=== PATIENT | female | born 1960 ===

== ENCOUNTER 2016-06-23 19:54 | Emergency (ER) | payer SELFPAY ==
[2016-06-23 20:16] VITALS: PULSE 72; TEMP 98.2; O2SAT 99
--- NOTE | 2016-06-23 20:52 | C.PDOC ---
History Of Present Illness A 56 year old female presents to the emergency room after presumedly swallowing a small fragment of broken glass yesterday in a vera colada drink. Patient reports irritation to the roof of the mouth. Patient has been able to drink or eat without any issues. Pt denies any foreign body sensation to throat, shortness of breath, vomiting blood, bloody stools, abdominal pain, difficulty swallowing, mouth swelling, or any other complaints. Time Seen by Provider: 06/23/16 20:24 Chief Complaint (Nursing): ENT Problem History Per: Patient History/Exam Limitations: None Onset/Duration Of Symptoms: Days (1) Current Symptoms Are (Timing): Still Present Quality (Mouth/Throat): Other (Swallowed glass). denies: Tenderness, Swelling, Redness, Drainage Symptoms Have Been: Continuous Severity: Mild Anticoagulant/Antiplatlet Use?: No Recent Aspirin Use: No Past Medical History Reviewed: Historical Data, Nursing Documentation, Vital Signs Vital Signs: Last Vital Signs Temp 98.2 F 06/23/16 20:12 Pulse 72 06/23/16 20:12 Resp 20 06/23/16 21:21 BP Pulse Ox 99 06/23/16 21:11 - Medical History PMH: Denies: Gall Bladder Disease, Kidney Stones, Chronic Kidney Disease Family History: States: Unknown Family Hx - Social History Hx Tobacco Use: No Hx Alcohol Use: No Hx Substance Use: No - Immunization History Hx Tetanus Toxoid Vaccination: No Hx Influenza Vaccination: No Hx Pneumococcal Vaccination: No Review Of Systems Except As Marked, All Systems Reviewed And Found Negative. Constitutional: Negative for: Fever, Chills ENT: Positive for: Other (Swallowed a small fragment of glass. Irritation to the roof of the mouth.). Negative for: Mouth Pain, Mouth Swelling, Throat Pain , Throat Swelling Respiratory: Negative for: Cough, Shortness of Breath Gastrointestinal: Negative for: Nausea, Vomiting, Abdominal Pain, Diarrhea, Hematochezia, Hematemesis, Rectal Pain Physical Exam - Physical Exam Appears: Well, Non-toxic, Other (Appears anxious) Skin: Normal Color, Warm, Dry, No Rash Head: Atraumatic, Normacephalic Eye(s): bilateral: Normal Inspection, PERRL Oral Mucosa: Moist, No Drooling, No Other (erythema or wounds to roof of the mouth ) Tongue: Normal Appearing, No Swelling, No Laceration Lips: Normal Appearing, No Swelling Throat: Normal, No Erythema, No Exudate, No Drooling, No Other (FB) Neck: Normal ROM, No Midline Cervical Tenderness, No Paracervical Tenderness, Supple Cardiovascular: Rhythm Regular Respiratory: Normal Breath Sounds, No Rales, No Rhonchi, No Wheezing Gastrointestinal/Abdominal: Soft, No Tenderness, No Guarding, No Rebound Extremity: Normal ROM, No Tenderness Neurological/Psych: Oriented x3, Normal Speech, Normal Cognition ED Course And Treatment ECG: Interpreted By Me ECG Rhythm: Sinus Rhythm ECG Interpretation: Normal Rate From EC O2 Sat by Pulse Oximetry: 99 Medical Decision Making Medical Decision Making: Impression: A 56 year old female who allegedly swallowed a small fragment of glass yesterday. Patient appears anxious on examination. Mouth, throat, and lungs were clear, abd nontender. ( Pt brought to ER a microscopic size piece of glass)- Progress Notes: Prior to discharge, patient complained of chest tightness. Patient denied shortness of breath, diaphoresis, or any other complaints. EKG was normal. Patient youth care specialist Tina translated in chinese and d/w patient her plan of care including risks and benefits. Pt feels reassured, now no longer anxious or with chest tightness. Pt does understand plan and rreturn precautions instructions and does agree with the plan. Patient was discharged home with instructions to follow up with PMD/clinic within 1-2 days. Disposition Counseled Patient/Family Regarding: Diagnosis, Need For Followup, Rx Given - Disposition Disposition: HOME/ ROUTINE Disposition Time: 21:06 Condition: STABLE Additional Instructions: Please follow up with your doctor or in clinic Return to ER if difficulty swallowing, difficulty breathing, chest and abdominal pain. vomiting blood. blood in stools or worse Instructions: Foreign Body Ingestion (ED) Print Language: MARTINIQUAIS - Clinical Impression Clinical Impression: H/O swallowed foreign body - Scribe Statement The provider has reviewed the documentation as recorded by the Tashaibani Martin All medical record entries made by the Tashaibani were at my direction and personally dictated by me. I have reviewed the chart and agree that the record accurately reflects my personal performance of the history, physical exam, medical decision making, and the department course for this patient. I have also personally directed, reviewed, and agree with the discharge instructions and disposition.
[2016-06-23 21:22] VITALS: RESP 20
== END 2016-06-23 21:21 | disposition home or self-care (01) ==
LOC: C.ER 19:54
DX: R09.89 Other specified symptoms and signs involving the circulatory and respiratory systems (principal)

== ENCOUNTER 2016-07-22 20:55 | Emergency (ER) | payer SELFPAY ==
[2016-07-22 21:33] VITALS: BP 165/89; PULSE 70; RESP 20; TEMP 98.5; O2SAT 97
--- NOTE | 2016-07-23 00:02 | C.PDOC ---
Time Seen by Provider: 07/22/16 22:33 Chief Complaint (Nursing): Headache Past Medical History Vital Signs: Last Vital Signs Temp 98.5 F 07/22/16 21:29 Pulse 70 07/22/16 21:29 Resp 20 07/22/16 23:18 BP 165/89 H 07/22/16 21:29 Pulse Ox 97 07/22/16 21:29 - Medical History PMH: Denies: Gall Bladder Disease, Kidney Stones, Chronic Kidney Disease Family History: States: Unknown Family Hx - Social History Hx Tobacco Use: No Hx Alcohol Use: No Hx Substance Use: No - Immunization History Hx Tetanus Toxoid Vaccination: No Hx Influenza Vaccination: No Hx Pneumococcal Vaccination: No ED Course And Treatment O2 Sat by Pulse Oximetry: 97 Disposition - Disposition Disposition: LEFT W/O BEING SEEN - ER ONLY Disposition Time: 00:01 Condition: UNKNOWN - Clinical Impression Clinical Impression: Patient left without being seen
== END 2016-07-22 23:18 | disposition left against medical advice (07) ==
LOC: C.ER 20:55
DX: R51 Headache (principal); Z02.9 Encounter for administrative examinations, unspecified

== ENCOUNTER 2017-07-10 07:25 | Emergency (ER) | payer OTHER ==
--- NOTE | 2017-07-10 08:30 | C.PDOC ---
History Of Present Illness 57-year-old female, presents to the emergency department with complaints of three-day duration of pain and swelling to the left side of her face. Patient has not taken any medication at home for symptoms. Denies nausea/vomiting, fever or any other associated symptoms. No other complaints at this time. Time Seen by Provider: 07/10/17 07:41 Chief Complaint (Nursing): Abnormal Skin Integrity History Per: Patient History/Exam Limitations: no limitations Past Medical History Reviewed: Historical Data, Nursing Documentation, Vital Signs Vital Signs: Last Vital Signs Temp 98.5 F 07/10/17 08:34 Pulse 66 07/10/17 08:34 Resp 18 07/10/17 08:34 BP 144/86 07/10/17 08:34 Pulse Ox 97 07/10/17 11:43 Family History: States: No Known Family Hx - Social History Hx Tobacco Use: No Hx Alcohol Use: No Hx Substance Use: No - Immunization History Hx Tetanus Toxoid Vaccination: No Hx Influenza Vaccination: No Hx Pneumococcal Vaccination: No Review Of Systems Constitutional: Negative for: Fever, Chills Eyes: Negative for: Pain ENT: Negative for: Ear Pain, Ear Discharge, Nose Congestion, Throat Pain, Throat Swelling Cardiovascular: Negative for: Chest Pain Respiratory: Negative for: Shortness of Breath Gastrointestinal: Negative for: Nausea, Vomiting Skin: Positive for: Rash Physical Exam - Physical Exam Skin: Warm, Dry, Other (left upper lip is swollen with erythema to cheek, (+) vesicles, ) Head: Atraumatic, Normacephalic, Other ((+) preauricular and submandibular lymphadenopathy) Eye(s): bilateral: Normal Inspection, PERRL, EOMI Ear(s): Bilateral: Normal Nose: Normal Oral Mucosa: Moist Tongue: Normal Appearing, No Swelling Lips: Swelling Neck: Normal ROM, Supple Chest: Symmetrical Cardiovascular: Rhythm Regular, No Murmur Respiratory: Normal Breath Sounds, No Accessory Muscle Use Extremity: Normal ROM, No Deformity, No Swelling Neurological/Psych: Oriented x3, Normal Speech ED Course And Treatment O2 Sat by Pulse Oximetry: 97 (RA) Pulse Ox Interpretation: Normal Medical Decision Making Medical Decision Making: Impression: Zoster Plan: * Mupirocin, Zovirax * Reassess and Disposition Progress: Patient feels comfortable being discharged home. She will be given Rx for Zovirax, Mupirocin ointment, Motrin and Neurontin and instructed to f/u outpatient with PMD. All questions answered. Disposition - Disposition Referrals: [facility] [Outside] Disposition: HOME/ ROUTINE Disposition Time: 08:24 Condition: STABLE Additional Instructions: Follow up in Clinic within 1-2 days. Return to ED if feel worse. Prescriptions: Acyclovir 2 tab PO QID 7 Days #56 tablet Mupirocin 2% Ointment [Bactroban Ointment] 1 appl TP BID #1 tube Ibuprofen [Motrin Tab] 600 mg PO Q8 #30 tab Gabapentin [Neurontin] 100 mg PO TID #30 capsule Instructions: Shingles (DC) Forms: Suo Yi (Samoan) Print Language: ITALIAN - Clinical Impression Clinical Impression: Herpes zoster - Scribe Statement The provider has reviewed the documentation as recorded by the Scribe (Yon Awad) All medical record entries made by the Scribe were at my direction and personally dictated by me. I have reviewed the chart and agree that the record accurately reflects my personal performance of the history, physical exam, medical decision making, and the department course for this patient. I have also personally directed, reviewed, and agree with the discharge instructions and disposition.
[2017-07-10 08:34] VITALS: BP 144/86; PULSE 66; RESP 18; TEMP 98.5
[2017-07-10 09:39] VITALS: O2SAT 97
== END 2017-07-10 08:47 | disposition home or self-care (01) ==
LOC: C.ER 07:25
DX: B02.9 Zoster without complications (principal)